=== PATIENT | female | born 1990 | race Caucasian/White ===

== ENCOUNTER 2024-08-06 10:34 | Emergency (ER) | payer OTHER, SELFPAY ==
[2024-08-06 10:45] VITALS: BP 157/104; PULSE 90; RESP 16; TEMP 36.6; O2SAT 96; BMI 23.0
[2024-08-06 11:49] LABS: RBC Urine 0-1/HPF (0-5/HPF); Urine Volume 10mL (spun); WBC Urine 10-30/HPF (0-5/HPF)
[2024-08-06 11:50] LABS: Bacteria Urine Occasional (0-1); Culture Indicated Urine Specimen Cultured; Squamous Epithelial Cell Urine 0-1 /HPF (0-5/HPF)
--- NOTE | 2024-08-06 12:26 | ED_ITS ---
HPI - Female Genitourinary <Michelle Condon PA-C - Last Filed: 08/06/24 13:24> General Chief complaint: Urogenital-Female Stated complaint: UTI Time Seen by Provider: 08/06/24 12:26 History of Present Illness HPI Narrative: Patient is a very pleasant 34-year-old female that presents to the emergency room department today complaining of urinary frequency, urgency and painful urination. The patient just got into [facility], she is in the , just got off a plane has been traveling from extended period of time. States she did not drink a lot of water on the extended flight, as soon as she got off the plane she drank 3 large containers of water. She has had the symptoms of urinary tract infection for the last 8 hours. She has a history of UTIs. Currently not sexually active, no changes in her vaginal benita. No fevers. Some mild back discomfort. No other symptoms. Related Data Previous Rx's Medication Instructions Recorded cephalexin 500 mg capsule 500 mg PO BID 7 days #14 caps 08/06/24 Review of Systems <Michelle Condon PA-C - Last Filed: 08/06/24 13:24> Review of Systems Narrative: Negative except as above Genitourinary Comments: Urinary frequency urgency and painful urination signs and symptoms of UTI Exam <Michelle Condon PA-C - Last Filed: 08/06/24 13:24> Initial Vital Signs Initial Vital Signs: Vital Signs Temperature 97.8 F 08/06/24 10:45 Pulse Rate 90 08/06/24 10:45 Respiratory Rate 16 08/06/24 10:45 Blood Pressure 157/104 H 08/06/24 10:45 Pulse Oximetry 96 08/06/24 10:45 Oxygen Delivery Method Room Air 08/06/24 10:45 Reviewed Const General: cooperative, healthy appearing, comfortable, well developed, well groomed, No acute distress and No in distress Eyes General: Yes appearance normal, both eyes and all related structures Pupils: PERRL EOM: EOM intact bilaterally Skin Other: Warm pink and dry Neuro Other: Cranial nerves are grossly intact Extrem Other: Range of motion, strength, pulses, cap refill preserved in the upper and lower extremities Psych Other: Parents, mental status, speech, movement, mood, affect, attitude, thought process, thought content, judgment all within normal limits <Tyrone Ngo MD - Last Filed: 08/06/24 17:30> Initial Vital Signs Initial Vital Signs: Vital Signs Temperature 97.8 F 08/06/24 10:45 Pulse Rate 90 08/06/24 10:45 Respiratory Rate 16 08/06/24 10:45 Blood Pressure 157/104 H 08/06/24 10:45 Pulse Oximetry 96 08/06/24 10:45 Oxygen Delivery Method Room Air 08/06/24 10:45 Scores <Michelle Condon PA-C - Last Filed: 08/06/24 13:24> GCS Citation: 15 Course <Michelle Condon PA-C - Last Filed: 08/06/24 13:24> Orders Ordered: ED Orders 08/06/24 10:50 Urine Culture Stat Urine Microscopic Stat Vital Signs Vital signs: Vital Signs - 8 hr 08/06/24 10:45 08/06/24 12:30 Temperature 97.8 F Pulse Rate 90 73 Respiratory Rate 16 16 Blood Pressure 157/104 H 155/95 H Pulse Oximetry 96 99 Oxygen Delivery Method Room Air Room Air <Tyrone Ngo MD - Last Filed: 08/06/24 17:30> Orders Ordered: ED Orders 08/06/24 10:50 Urine Culture Stat Urine Microscopic Stat Vital Signs Vital signs: Vital Signs - 8 hr 08/06/24 10:45 08/06/24 12:30 Temperature 97.8 F Pulse Rate 90 73 Respiratory Rate 16 16 Blood Pressure 157/104 H 155/95 H Pulse Oximetry 96 99 Oxygen Delivery Method Room Air Room Air MDM - Female Genitourinary <Michelle Condon PA-C - Last Filed: 08/06/24 13:24> Lab Data Labs: Lab Results 08/06/24 Range/Units 10:50 Urine RBC 0-1/hpf (0-5/HPF) Urine WBC 10-30/hpf H (0-5/HPF) Ur Squamous Epith Cells 0-1 /hpf (0-5/HPF) Urine Bacteria Occasional (0-1) (None) Ur Culture Indicated? 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 Urine is positive for bacteria and blood. No fevers, some mild back discomfort UTI Prescription sent to the pharmacy Supportive therapy education ED precautions Repeat urine 3-5 days after she finishes the antibiotics to make sure that the infection clears Return to the emergency room department as needed for any signs or symptoms of worsening UTI symptoms. <Tyrone Ngo MD - Last Filed: 08/06/24 17:30> Lab Data Labs: Lab Results 08/06/24 Range/Units 10:50 Urine RBC 0-1/hpf (0-5/HPF) Urine WBC 10-30/hpf H (0-5/HPF) Ur Squamous Epith Cells 0-1 /hpf (0-5/HPF) Urine Bacteria Occasional (0-1) (None) Ur Culture Indicated? Specimen cultured Vol Urine Centrifuged 10ml (spun) Point of Care Testing Test Results Negative Urine Dip Bedside Urine Glucose Negative Bedside Urine Bilirubin - Negative Bedside Urine Ketone - Negative Urine Specific [place] 1.015 Bedside Urine Occult Blood ++ Bedside Urine pH 6.0 Bedside Urine Protein - Negative Bedside Urine Urobilinogen - Negative Bedside Urine Nitrite - Negative Bedside Urine Leukocytes + 70 Esterase Discharge Plan Departure Patient Disposition: Home Clinical Impression: Urinary tract infection Instructions: DI for Urinary Tract Infection (UTI) Activity Restrictions/Additional Instructions: Increase your hydration [id number] azo Cranberry supplement Dmannos Prescription has been sent to [facility] You will need a repeat urine 3-5 days after you finish the antibiotics to make sure the infection is cleared Return to the emergency department as needed Watch her nausea, vomiting, fever, worsening symptoms. Prescriptions: New cephalexin 500 mg capsule 500 mg PO BID 7 Days Qty: 14 0RF Referrals: Provider,Saw BEJARANO [Primary Care Provider] - Stand Alone Forms: Patient Portal/API ED Sign-out <Tyrone Ngo MD - Last Filed: 08/06/24 17:30> Cosign ED Attending Cosignature Attestation: I was immediately available in the department for consultation. This documentation has been reviewed. Tyrone Ngo MD
[2024-08-06 12:30] VITALS: BP 155/95; PULSE 73; RESP 16; O2SAT 99
== END 2024-08-06 12:35 | disposition home or self-care (01) ==
PROVIDERS: Emergency Medicine; Emergency Provider Physician Assistant
DX: N39.0 Urinary tract infection, site not specified (principal)
CPT/HCPCS: 81003; 81015; 81025; 87077; 87086; 87186; 99282